=== PATIENT | female | born 1975 | race Caucasian/White ===

== ENCOUNTER 2016-10-10 14:22 | Emergency (ER) | payer BC, OTHER ==
[~2016-10-10 14:22] MED LIST: ABILIFY15 MG PO; ACETAMINOPHEN325 MG PO; ALDACTONE25 MG PO; FERROUS SULFAT325 MG PO; FIORICET/BUTALBI1 EA PO; IPRAT-ALBUT 0.5-3 ML NEB; LACTINEX CHEWA1 EACH PO; LEVAQUIN750 MG PO; LORTAB 5-325 M1 EACH PO; OXYCONTIN10 MG PO; PERCOCET 10/3251 TAB PO; PHENERGAN25 M1 PO; PROZAC40 MG PO; SYNTHROID75 MCG PO; TYLENOL325 MG PO; VITAMIN C500 M1 PO; XANAX0.5 MG PO; ZOFRAN4 MG PO
== END 2016-10-10 17:30 | disposition home or self-care (01) ==
LOC: ER 14:22
DX: G43.909 Migraine, unspecified, not intractable, without status migrainosus (principal); N39.0 Urinary tract infection, site not specified; B37.3 Candidiasis of vulva and vagina; F32.9 Major depressive disorder, single episode, unspecified; F41.9 Anxiety disorder, unspecified; Z79.899 Other long term (current) drug therapy
CPT/HCPCS: 87502; 96372; J1885

== ENCOUNTER 2016-11-04 12:51 | Emergency (ER) | payer BC, OTHER | END 2016-11-04 13:55 | disposition home or self-care (01) | LOC: ER 12:51 | DX: G43.909 Migraine, unspecified, not intractable, without status migrainosus (principal); R19.7 Diarrhea, unspecified; R10.30 Lower abdominal pain, unspecified; M54.2 Cervicalgia; F32.9 Major depressive disorder, single episode, unspecified; F41.9 Anxiety disorder, unspecified; Z90.49 Acquired absence of other specified parts of digestive tract; Z90.710 Acquired absence of both cervix and uterus; Z98.51 Tubal ligation status; Z79.899 Other long term (current) drug therapy | CPT/HCPCS: 96372; J1885 ==

== ENCOUNTER 2016-12-11 09:48 | Emergency (ER) | payer BC, OTHER | END 2016-12-11 13:31 | disposition home or self-care (01) | LOC: ER 09:48 | DX: R10.31 Right lower quadrant pain (principal); R51 Headache; R11.2 Nausea with vomiting, unspecified; R19.7 Diarrhea, unspecified; R50.9 Fever, unspecified; F32.9 Major depressive disorder, single episode, unspecified; F41.9 Anxiety disorder, unspecified; Z90.49 Acquired absence of other specified parts of digestive tract; Z90.710 Acquired absence of both cervix and uterus; Z79.899 Other long term (current) drug therapy | CPT/HCPCS: 36415; 96365; 96375; J1200; J1885; J2765; Q9967 ==

== ENCOUNTER 2016-12-25 22:06 | Emergency (ER) | payer BC, OTHER | END 2016-12-26 02:43 | disposition home or self-care (01) | LOC: ER 22:06 | DX: G44.209 Tension-type headache, unspecified, not intractable (principal); R50.9 Fever, unspecified; F32.9 Major depressive disorder, single episode, unspecified; F41.9 Anxiety disorder, unspecified; Z90.49 Acquired absence of other specified parts of digestive tract; Z90.710 Acquired absence of both cervix and uterus; Z79.899 Other long term (current) drug therapy; Z88.6 Allergy status to analgesic agent | CPT/HCPCS: 36415; 96374; 96375; 96376 ==